=== PATIENT | female | born 1960 | race Caucasian/White ===

== ENCOUNTER 2017-10-20 03:01 | Emergency (ER) | payer BC, OTHER ==
[2017-10-20 03:41] LABS: Appearance,Urine Cloudy (Clear); Bacteria,Urine Rare /hpf; Bilirubin,Urine Negative (Negative); Blood,Urine Trace (Negative); Color,Urine Light Yellow; Glucose,Urine (UA) Negative (Negative); Ketones,Urine Negative (Negative); Leukocyte Esterase,Urine Large (Negative); Mucus,Urine Rare /hpf; Nitrite,Urine Negative (Negative); Protein,Urine Negative (Negative); RBC,Urine 19 /hpf (0-5); Specific Gravity,Urine 1.005 (1.001-1.035); Squamous Epithelial Cell,Urine <1 /hpf (0-4); Urobilinogen,Urine <2.0 mg/dL (<2.0); WBC,Urine 109 /hpf (0-5)
--- NOTE | 2017-10-20 03:58 | ED ---
Abdominal Pain HPI - General Chief Complaint: Abdominal Pain Stated Complaint: abd pain Time Seen by Provider: 10/20/17 03:20 Source: patient Mode of arrival: ambulatory Limitations: no limitations - History of Present Illness Initial Comments: 57 year-old female patient presents to the emergency department today with complaints of vaginal discharge. Patient states that the discharge is yellow in color. She states has been present for the last 3-4 days. States that she initially thought she had a yeast infection however has been treating with intravaginal Monistat for the last 3 days without improvement of symptoms. Patient states that yesterday morning she developed lower abdominal cramping. States this persisted throughout the day today. She denies any fevers or chills with this. Denies any hematuria, dysuria, urinary urgency, urinary frequency. She denies any nausea or vomiting. States she has not been sexually active for the last 9 months. She is postmenopausal, states she hasn' t had a period in many years. States that she does consistently have routine gynecologic visits. States that she has never had any abnormalities. Patient denies any recent rash, shortness breath, chest pain, diarrhea, constipation, back pain, numbness, tingling, dizziness, weakness, hematuria, dysuria, urinary urgency, urinary frequency, headache, visual changes, or any other complaints. - Related Data Previous Rx's Medication Instructions Recorded Sulfamethoxazole/Trimethoprim 1 each PO BID #10 tablet 10/20/17 [Bactrim DS 800-160 mg] Allergies Allergy/AdvReac Type Severity Reaction Status Date / Time ibuprofen [From Motrin] Allergy Rash/Hives Verified 10/20/17 03:09 Review of Systems ROS Statement: Those systems with pertinent positive or pertinent negative responses have been documented in the HPI. ROS Other: All systems not noted in ROS Statement are negative. Past Medical History Past Medical History: No Reported History History of Any Multi-Drug Resistant Organisms: None Reported Past Surgical History: Cholecystectomy, Tubal Ligation Additional Past Surgical History / Comment(s): carpal tunnel Past Psychological History: No Psychological Hx Reported Smoking Status: Current every day smoker Past Alcohol Use History: Occasional Past Drug Use History: None Reported General Exam Limitations: no limitations General appearance: alert, in no apparent distress, other Eye exam: Present: normal appearance, PERRL, EOMI. Absent: scleral icterus, conjunctival injection, periorbital swelling ENT exam: Present: normal exam, normal oropharynx, mucous membranes moist Respiratory exam: Present: normal lung sounds bilaterally. Absent: respiratory distress, wheezes, rales, rhonchi, stridor Cardiovascular Exam: Present: regular rate, normal rhythm, normal heart sounds. Absent: systolic murmur, diastolic murmur, rubs, gallop, clicks GI/Abdominal exam: Present: soft, normal bowel sounds. Absent: distended, tenderness, guarding, rebound, rigid External exam: Present: normal external exam Speculum exam: Present: vaginal discharge (Thin, yellowish, moderate amount). Absent: normal speculum exam, cervical discharge By manual exam: Present: cervical motion tenderness. Absent: normal by manual exam Neurological exam: Present: alert, oriented X3, CN II-XII intact Psychiatric exam: Present: normal affect, normal mood Skin exam: Present: warm, dry, intact, normal color. Absent: rash Course Vital Signs 10/20/17 03:05 Temperature 97.3 F L Pulse Rate 111 H Respiratory 20 Rate Blood Pressure 179/103 O2 Sat by Pulse 100 Oximetry Medical Decision Making - Medical Decision Making 57 year-old female patient presents to the emergency department today for evaluation of vaginal discharge and lower abdominal cramping 3-4 days. Abdomen was nontender. Speculum examination was performed and did reveal a thin yellowish vaginal discharge. Bimanual exam revealed cervical motion tenderness. No adnexal tenderness. Urinalysis was obtained and showed a cloudy appearance with trace blood, large leukocyte esterase, 19 red blood cells , 109 white blood cells, rare bacteria, and rare mucous. Vaginal cervical cultures were sent and patient was positive for Trichomonas. I did discuss results with the patient. We will treat her here with Rocephin, azithromycin, and Flagyl. She'll be given a prescription for Bactrim for urinary tract infection. 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 She is instructed to return here immediately for any new, worsening, or concerning symptoms. She verbalizes understanding and agrees with this plan. - Lab Data Lab Results 10/20/17 10/20/17 Range/Units 03:28 03:37 Urine Color Light Yellow Urine Appearance Cloudy H (Clear) Urine pH 6.0 (5.0-8.0) Ur Specific [place] 1.005 (1.001-1.035) Urine Protein Negative (Negative) Urine Glucose (UA) Negative (Negative) Urine Ketones Negative (Negative) Urine Blood Trace H (Negative) Urine Nitrite Negative (Negative) Urine Bilirubin Negative (Negative) Urine Urobilinogen <2.0 (<2.0) mg/dL Ur Leukocyte Esterase Large H (Negative) Urine RBC 19 H (0-5) /hpf Urine WBC 109 H (0-5) /hpf Ur Squamous Epith Cells <1 (0-4) /hpf Urine Bacteria Rare H (None) /hpf Urine Mucus Rare H (None) /hpf Trichomonas Ag (Rapid) Positive H (Negative) Disposition Clinical Impression: Trichomonas infection, Urinary tract infection Disposition: HOME SELF-CARE Condition: Good Instructions: Trichomoniasis (ED), Urinary Tract Infection in Women (ED) Additional Instructions: Take Bactrim prescription in full. Increase fluid intake. Follow-up with your primary care physician or agricultural commodities grader for continued symptoms. Return here immediately for any new, worsening, or concerning symptoms. Prescriptions: Sulfamethoxazole/Trimethoprim [Bactrim DS 800-160 mg] 1 each PO BID #10 tablet Referrals: Richard Gray DO [Primary Care Provider] - 1-2 days Time of Disposition: 04:04
[2017-10-20] MEDS ORDERED: metroNIDAZOLE 500 MG TAB PO STA (04:02)
[2017-10-20] MEDS ORDERED: AZITHROMYCIN 500 MG TAB PO STA (04:02)
[2017-10-20] MEDS ORDERED: cefTRIAXone 250 MG VIAL IM STA (04:02)
[2017-10-20 16:25] VITALS: BP 158/73; PULSE 98; RESP 20; TEMP 97
[2017-10-24 10:50] LABS: Neisseria Source Vaginal; Neisseria gonorrhoeae rRNA Not detected (Not detected)
== END 2017-10-20 04:43 | disposition home or self-care (01) ==
LOC: EC 03:01
DX: N39.0 Urinary tract infection, site not specified (principal); A59.9 Trichomoniasis, unspecified; F17.200 Nicotine dependence, unspecified, uncomplicated; Z90.49 Acquired absence of other specified parts of digestive tract; Z98.51 Tubal ligation status; Z88.6 Allergy status to analgesic agent
CPT/HCPCS: 81001; 87808; 87070; 87205; 99284; 96372; J0696

== ENCOUNTER 2017-12-23 08:41 | Emergency (ER) | payer BC ==
[2017-12-23 09:01] VITALS: BP 135/65; PULSE 54; RESP 18; TEMP 97.1
[2017-12-23] MEDS ORDERED: ORPHENADRINE 30 MG/ML 2 ML VIAL IM STA (09:14)
--- NOTE | 2017-12-23 09:20 | ED ---
Back Pain HPI - General Chief Complaint: Back Pain/Injury Stated Complaint: Back pain Time Seen by Provider: 12/23/17 09:05 Source: patient, RN notes reviewed, old records reviewed Limitations: no limitations - History of Present Illness Initial Comments: This patient is a pleasant 57-year-old female presents emergency room stay chief complaint of lower back strain. She reports that on Tuesday she was lifting up a heavy box at work. 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 Patient states that she twisted and felt a strain on her lower back muscles. She states that she worked the following days after the strain reports that her pain seems to be to skating worse and not having some time to heal. She denies any saddle anesthesias. She denies any numbness or tingling or pain shooting down the legs. She reports that the pain is worse with certain movements of her lower back. She reports that she has no fever or chills, abdominal pain, chest pain or shortness of breath. He states that she is ALLERGIC to NSAIDs. - Related Data Previous Rx's Medication Instructions Recorded Sulfamethoxazole/Trimethoprim 1 each PO BID #10 tablet 10/20/17 [Bactrim DS 800-160 mg] Acetaminophen-Codeine 300-30mg 1 tab PO Q6H PRN #12 tablet 12/23/17 [Tylenol #3] Cyclobenzaprine [Flexeril] 10 mg PO TID #15 tab 12/23/17 Allergies Allergy/AdvReac Type Severity Reaction Status Date / Time ibuprofen [From Motrin] Allergy Rash/Hives Verified 12/23/17 08:57 Review of Systems ROS Statement: Those systems with pertinent positive or pertinent negative responses have been documented in the HPI. ROS Other: All systems not noted in ROS Statement are negative. Past Medical History Past Medical History: No Reported History History of Any Multi-Drug Resistant Organisms: None Reported Past Surgical History: Cholecystectomy, Tubal Ligation Additional Past Surgical History / Comment(s): carpal tunnel Past Psychological History: No Psychological Hx Reported Smoking Status: Current every day smoker Past Alcohol Use History: Occasional Past Drug Use History: None Reported General Exam - General Exam Comments Initial Comments: This patient is a pleasant 57-year-old female. No acute distress. Limitations: no limitations General appearance: alert, in no apparent distress Head exam: Present: atraumatic, normocephalic, normal inspection Eye exam: Present: normal appearance, PERRL, EOMI. Absent: scleral icterus, conjunctival injection, periorbital swelling ENT exam: Present: normal exam, mucous membranes moist Neck exam: Present: normal inspection. Absent: tenderness, meningismus, lymphadenopathy Respiratory exam: Present: normal lung sounds bilaterally. Absent: respiratory distress, wheezes, rales, rhonchi, stridor Cardiovascular Exam: Present: regular rate, normal rhythm, normal heart sounds. Absent: systolic murmur, diastolic murmur, rubs, gallop, clicks Back exam: Present: normal inspection, muscle spasm, paraspinal tenderness ( Lumbar paraspinal tenderness. Evidence of muscle spasms over the lumbar spine.) Neurological exam: Present: alert, oriented X3, CN II-XII intact Psychiatric exam: Present: normal affect, normal mood Skin exam: Present: warm, dry, intact, normal color. Absent: rash Course Vital Signs 12/23/17 08:58 Temperature 97.1 F L Pulse Rate 54 L Respiratory 18 Rate Blood Pressure 135/65 O2 Sat by Pulse 99 Oximetry Medical Decision Making - Medical Decision Making This patient is a pleasant 57-year-old female presents today chief complaint of lower back strain after work. She states she's had no falls or trauma. She lifted a box a few days ago and states that that seemed to cause the pain. She is here requesting some muscle relaxers and time off of work to allow her to heal. She has been laying on a heating pad reports that does help somewhat but she did without resting she is continuing to have some pain. She denies any saddle anesthesias. Patient has normal range motion of the lower extremities. Normal sensation. Normal pulses. Patient does have some lumbar spinal tenderness and paraspinal muscle spasms. Discussed with him he follow-up major traumatic injury do not expect to see any abnormality on chest x-ray. Patient agrees and states that she does not want to complete x-rays at this time. I will give the patient IM Norflex. I discussed that I'll discharge her with short prescription for muscle relaxers for pain. Discussed that she needs to take one to 2 days off and follow-up with her primary care provider or [facility] if symptoms are continuing to persist. Patient advised on return parameters. All questions were answered. Disposition Clinical Impression: Lumbar spine strain Disposition: HOME SELF-CARE Condition: Good Instructions: Acute Low Back Pain (ED) Additional Instructions: Is advised to continue to do heat and take muscle relaxer and pain medication. Follow up with PCP and return to ED if any alarming signs or symptoms occur. Prescriptions: Acetaminophen-Codeine 300-30mg [Tylenol #3] 1 tab PO Q6H PRN #12 tablet PRN Reason: Pain Cyclobenzaprine [Flexeril] 10 mg PO TID #15 tab Referrals: Richard Gray DO [Primary Care Provider] - 1-2 days Time of Disposition: 09:18
== END 2017-12-23 09:30 | disposition home or self-care (01) ==
LOC: EC 08:41
DX: S39.012A Strain of muscle, fascia and tendon of lower back, initial encounter (principal); F17.200 Nicotine dependence, unspecified, uncomplicated; Z88.6 Allergy status to analgesic agent; X50.1XXA Overexertion from prolonged static or awkward postures, initial encounter; Y93.89 Activity, other specified; Y92.69 Other specified industrial and construction area as the place of occurrence of the external cause
CPT/HCPCS: 99283; 96372; J2360

== ENCOUNTER 2017-12-28 10:17 | Emergency (ER) | payer BC ==
[2017-12-28 10:40] VITALS: BP 111/79; PULSE 91; RESP 18; TEMP 97.4
[2017-12-28] MEDS ORDERED: KETOROLAC 60 MG/2 ML VIAL IM STA (11:34)
[2017-12-28] MEDS ORDERED: ORPHENADRINE 30 MG/ML 2 ML VIAL IM STA (11:34)
[2017-12-28] MEDS ORDERED: CYCLOBENZAPRINE 10MG STARTER 3 TAB BTL PO STA (11:34)
--- NOTE | 2017-12-28 11:37 | ED ---
General Adult HPI - General Chief complaint: Back Pain/Injury Stated complaint: Back pain Time Seen by Provider: 12/28/17 10:35 Source: patient, RN notes reviewed Mode of arrival: ambulatory Limitations: no limitations - History of Present Illness Initial comments: This a 57-year-old female who presents to the emergency department complaining of back pain. Patient states she twisted wrong at work approximately week ago and this when the pain began per patient denies any radiation of the pain. Patient states the pain is just worse if she twists bends or lifts anything heavy. Patient states she does do quite a bit of lifting at work. Patient states she came to the emergency department week ago but was unable to fill the prescription because she doesn't appear to Tuesday. Patient denies any urinary incontinence or urinary retention. Patient denies any numbness or focal weakness. Patient denies any blunt trauma or falls. Patient states she's been taking 1 220 mg of Levaquin today. - Related Data Previous Rx's Medication Instructions Recorded Acetaminophen-Codeine 300-30mg 1 tab PO Q6H PRN #12 tablet 12/23/17 [Tylenol #3] Cyclobenzaprine [Flexeril] 10 mg PO TID #15 tab 12/23/17 Allergies Allergy/AdvReac Type Severity Reaction Status Date / Time ibuprofen [From Motrin] Allergy Rash/Hives Verified 12/28/17 10:40 Review of Systems ROS Statement: Those systems with pertinent positive or pertinent negative responses have been documented in the HPI. ROS Other: All systems not noted in ROS Statement are negative. Past Medical History Past Medical History: No Reported History History of Any Multi-Drug Resistant Organisms: None Reported Past Surgical History: Cholecystectomy, Tubal Ligation Additional Past Surgical History / Comment(s): carpal tunnel Past Psychological History: No Psychological Hx Reported Smoking Status: Current every day smoker Past Alcohol Use History: Occasional Past Drug Use History: None Reported General Exam - General Exam Comments Initial Comments: GENERAL Patient is well-developed and well-nourished. Patient is in mild distress. EYES Patient's pupils are equal and round. Extraocular motion is intact SKIN Unremarkable NEURO The patient is alert and oriented 3 PYSCH Patient has normal interpersonal interactions. MUSCULOSKELETAL Patient's full range of motion of all 4 tremors. Patient has straight leg test without any pain bilaterally. Patient has no tenderness to palpation of the lower back. Limitations: no limitations Course Vital Signs 12/28/17 10:37 Temperature 97.4 F L Pulse Rate 91 Respiratory 18 Rate Blood Pressure 111/79 O2 Sat by Pulse 97 Oximetry Medical Decision Making - Medical Decision Making Patient does not believe she broke and he thinks she does not want an x-ray. Disposition Clinical Impression: Lumbar spine strain Disposition: HOME SELF-CARE Instructions: Acute Low Back Pain (ED) Additional Instructions: Patient should take up to 500 mg of Aleve twice a day. Patient should take Flexeril as prescribed. Patient should fill his prescription as soon as she can Referrals: Richard Gray DO [Primary Care Provider] - 1-2 days Time of Disposition: 11:37
== END 2017-12-28 11:48 | disposition home or self-care (01) ==
LOC: EC 10:17
DX: S39.012A Strain of muscle, fascia and tendon of lower back, initial encounter (principal); F17.200 Nicotine dependence, unspecified, uncomplicated; X50.1XXA Overexertion from prolonged static or awkward postures, initial encounter; Y92.69 Other specified industrial and construction area as the place of occurrence of the external cause; Y99.0 Civilian activity done for income or pay
CPT/HCPCS: 99283; 96372 ×2; J2360; J1885